=== PATIENT | male | born 1960 | race Caucasian/White ===

== ENCOUNTER 2016-09-23 13:28 | Outpatient (CLI) | payer OTHER ==
[~2016-09-23] VITALS: Ht 170.2 cm; Wt 136.1 kg
[~2016-09-23 13:28] MED LIST: ASCO25TA PO; ATOR1TAB21 PO; CINN500C9 PO; ELIQ2.5T PO; K-TA10TA2 PO; LOSA100T37 PO; METO100T PO; OMEP40CA2 PO; VITA1CAP2 PO
[2016-09-23] MEDS ORDERED: NS 1,000 ML IV SCH (14:15)
[2016-09-23] MEDS ORDERED: PROPOFOL 200 MG/20 ML VIAL As Ordered ONE ×2 (14:59→15:14)
[2016-09-23] MEDS ORDERED: LIDOCAINE 2% INJ 100 MG/5 ML SDV (FOR ANES.) As Ordered ONE (14:59)
--- NOTE | 2016-09-23 15:25 | ROOR ---
Patient Name: Zeeshan Neville Procedure Date: 09/23/2016 3:00 PM Date of : 1960 Age: 56 Room: [facility] Gender: Male Note Status: Finalized Procedure: Upper GI endoscopy Indications: Therapeutic procedure, duodenal adenomatous polyp Providers: Shane FAJARDO MD Referring MD: Glenn Martinez MD Requesting Provider: Medicines: Monitored Anesthesia Care Complications: No immediate complications. Procedure: Pre-Anesthesia Assessment: - The heart rate, respiratory rate, oxygen saturations, blood pressure, adequacy of pulmonary ventilation, and response to care were monitored throughout the procedure. The Endoscope was introduced through the mouth, and advanced to the third part of duodenum. The upper GI endoscopy was accomplished without difficulty. The patient tolerated the procedure well. Findings: Three diminutive sessile polyps were found in the second portion of the duodenum. This was biopsied with a cold forceps for histology. Coagulation for tissue destruction using argon plasma at 0.8 liters/minute and 30 pham was successful. The exam was otherwise without abnormality. Impression: - Three duodenal polyps. Biopsied. Treated with argon plasma coagulation (APC). - The examination was otherwise normal. Recommendation: - Telephone endoscopist for pathology results in 2 weeks. - Repeat upper endoscopy in 2 years for surveillance. Shane Fajardo MD Shane FAJARDO MD 09/23/2016 3:25:27 PM This report has been signed electronically. Number of Addenda: 0 Note Initiated On: 09/23/2016 3:00 PM Estimated Blood Loss: Estimated blood loss: none.
[2016-09-23 15:40] VITALS: BP 153/88
== END 2016-09-23 15:40 | disposition home or self-care (01) ==
LOC: M OPP 13:28
PROVIDERS: ATTEND Internal Medicine Gastroenterology
DX: K31.7 Polyp of stomach and duodenum (principal); I10 Essential (primary) hypertension; E78.00 Pure hypercholesterolemia, unspecified; E11.9 Type 2 diabetes mellitus without complications; K76.0 Fatty (change of) liver, not elsewhere classified; R06.83 Snoring; D68.51 Activated protein C resistance; Z86.718 Personal history of other venous thrombosis and embolism; Z79.899 Other long term (current) drug therapy; Z91.040 Latex allergy status